=== PATIENT | female | born 1955 | race Caucasian/White ===

== ENCOUNTER 2018-08-13 13:46 | Inpatient (IN) | payer OTHER, MEDICAID ==
[~2018-08-13] VITALS: Ht 167.6 cm; Wt 68.4 kg
[2018-08-13] MEDS ORDERED: ONDANSETRON HCL 4 MG/2 ML VIAL IV ONE (14:45)
[2018-08-13] MEDS ORDERED: MORPHINE SULFATE 4 MG/ML SYR/VIAL IV ONE (14:45)
[2018-08-13] MEDS ORDERED: NITROGLYCERIN 0.4 MG SL TAB SL ONE (14:45)
[2018-08-13] MEDS ORDERED: ASPirin 81 mg TAB PO ONE (14:45)
[2018-08-13 14:50] LABS: Basophils # (auto) 0 uL; Basophils % (auto) 0.4 % (0.0-2.0); Eosinophils # (auto) 0.1 uL; Eosinophils % (auto) 1.7 % (0.0-7.0); Hematocrit 40.8 % (36.0-46.0); Hemoglobin 13.7 g/dL (12.2-16.2); Lymphocytes % (auto) 11.3 % (10.0-50.0); Mean Corpuscular Hemoglobin 30.9 pg (28.0-32.0); Mean Corpuscular Hgb Conc. 33.5 g/dL (32.0-36.0); Mean Corpuscular Volume 92.1 fL (80.0-100.0); Monocytes # (auto) 0.7 uL; Monocytes % (auto) 7.6 % (0.0-12.0); Neutrophils # (auto) 6.8 uL; Nucleated Red Blood Cells % 0.1 %; Platelet Count (auto) 211 10^3/uL (140-450); Red Blood Cells 4.43 10^6/uL (4.0-5.20); Red Cell Distribution Width 14.1 % (11.8-14.3); White Blood Cell 8.6 10^3/uL (4.4-10.8)
[2018-08-13 15:10] LABS: Albumin 3.4 g/dL (3.4-5.0); BUN/Creatinine Ratio 28.4; Bilirubin, Total 0.3 mg/dL (0.2-1.0); Calcium 8.8 mg/dL (8.5-10.1); Magnesium 2.3 mg/dL (1.6-2.6); Potassium 3.9 mmol/L (3.5-5.1); Total Protein 6.9 g/dL (6.4-8.2)
[2018-08-13] MEDS ORDERED: ENOXAPARIN SOD 60 MG/0.6 ML SYRINGE SC ONE (15:30)
[2018-08-13 16:12] LABS: Urine Bacteria FEW /hpf (None Seen); Urine Blood Negative /uL (Negative); Urine Hyaline Cast MOD /lpf (0 - 2); Urine Mucus FEW (None Seen); Urine Specific Gravity 1.029 (1.001-1.035); Urine WBC 11 /hpf (0 - 5)
[2018-08-13] MEDS ORDERED: ACETAMINOPHEN 500 MG TAB PO PRN (16:45)
[2018-08-13] MEDS ORDERED: traMADol HCL 50 MG TAB PO PRN (16:45)
[2018-08-13] MEDS ORDERED: LACTULOSE 20Gm/30ML SOLN PO PRN (16:45)
[2018-08-13] MEDS ORDERED: NITROGLYCERIN 0.4 MG SL TAB SL PRN (16:45)
[2018-08-13] MEDS ORDERED: LORazepam 0.5 MG TAB PO PRN (16:45)
[2018-08-13] MEDS ORDERED: MORPHINE SULF INJ 2 MG/ML SYRINGE 1ML IV PRN (16:45)
[2018-08-13] MEDS ORDERED: ALBUTEROL SULF 2.5 MG/0.5ML(0.5%) NEB SOLN NEB PRN (16:45)
[2018-08-13] MEDS ORDERED: TEMAZEPAM 15 MG CAP PO PRN (16:45)
[2018-08-13] MEDS ORDERED: DEXTROSE (50%) 50ML SYRG IV PRN (16:45)
[2018-08-13] MEDS ORDERED: PROMETHAZINE HCL 25 MG/ML 1ML IV PRN (16:45)
[2018-08-13] MEDS: SODIUM CHLORIDE 0.9% 1,000 ML IV SCH (16:48)
[2018-08-13] MEDS ORDERED: ONDANSETRON HCL 4 MG/2 ML VIAL ONE (17:34)
[2018-08-13] MEDS: ONDANSETRON HCL 4 MG/2 ML VIAL IV PRN (18:02)
[2018-08-13] MEDS: MORPHINE SULF INJ 2 MG/ML SYRINGE 1ML IV PRN (18:02)
[2018-08-13] MEDS: ACCU-CHEK COMFORT CURVE STRIP VI SCH (18:10)
[2018-08-13] MEDS: IPRATROPIUM BROM 0.5 MG/2.5ML INH SOL NEB SCH (19:20)
[2018-08-13] MEDS: ALBUTEROL SULF 2.5 MG/0.5ML(0.5%) NEB SOLN NEB SCH (19:20)
[2018-08-13 19:26] LABS: INR 1.01 (0.9-1.15); Partial Thromboplastin Time 26.1 sec (23.78-33.04); Prothrombin Time 10.8 sec (9.27-12.13)
[2018-08-13] MEDS ORDERED: IOHEXOL 350 MG/ML 100ML IJ ONE (19:42)
[2018-08-13] MEDS ORDERED: cefTRIAXone 1GM/10ml IVPUSH 10 ML IV ONE (19:45)
[2018-08-13] MEDS ORDERED: VANCOMYCIN 1GM/250ML 250 ML IV ONE (19:45)
[2018-08-13] MEDS ORDERED: VANCOMYCIN PER PHARMACY 0 MG IV SCH (19:45)
[2018-08-13] MEDS ORDERED: AZITHROMYCIN 500MG/ 250ML 250 ML IV ONE (19:45)
[2018-08-13] MEDS ORDERED: PIPERACILLIN-TAZOB 3.375GM 100 ML IV ONE (19:45)
[2018-08-13] MEDS: ATORVASTATIN 20 MG TAB PO SCH (22:00)
[2018-08-14] MEDS: ALBUTEROL SULF 2.5 MG/0.5ML(0.5%) NEB SOLN NEB SCH ×4 (00:50→18:35)
[2018-08-14] MEDS: IPRATROPIUM BROM 0.5 MG/2.5ML INH SOL NEB SCH ×4 (00:50→18:35)
[2018-08-14 01:25] VITALS: BP 104/65
[2018-08-14] MEDS: PIPERACILLIN-TAZOB 3.375GM 100 ML IV SCH ×2 (02:30→06:00)
[2018-08-14] MEDS: SODIUM CHLORIDE 0.9% 1,000 ML IV SCH ×2 (06:06→21:49)
[2018-08-14] MEDS: ACCU-CHEK COMFORT CURVE STRIP VI SCH ×3 (06:15→12:55)
[2018-08-14] MEDS ORDERED: HEPARIN SODIUM (PORCINE) 5000 UNITS/ML 1ML VIAL IV ONE ×2 (08:15→19:45)
[2018-08-14] MEDS ORDERED: ASPirin 81 mg TAB PO ONE (08:15)
[2018-08-14] MEDS: ONDANSETRON HCL 4 MG/2 ML VIAL IV PRN (09:00)
[2018-08-14] MEDS ORDERED: cefTRIAXone 1GM/10ml IVPUSH 10 ML IV SCH ×2 (09:00→12:15)
[2018-08-14 09:05] LABS: INR 1.03 (0.9-1.15); Partial Thromboplastin Time 28.2 sec (23.78-33.04)
[2018-08-14] MEDS ORDERED: LIDOCAINE 2% (LOCAL ANESTH.) PF 5ml SDV ONE (09:32)
[2018-08-14] MEDS ORDERED: IODIXANOL 320MG/ML 100ML BTL IV ONE (09:32)
[2018-08-14] MEDS ORDERED: ENOXAPARIN SOD 60 MG/0.6 ML SYRINGE SC SCH (10:00)
[2018-08-14] MEDS ORDERED: NITROGLYCERIN 0.2MG/HR TOPICAL PATCH TD SCH (10:00)
[2018-08-14] MEDS ORDERED: AZITHROMYCIN 500MG/ 250ML 250 ML IV SCH (10:00)
[2018-08-14] MEDS ORDERED: PANTOPRAZOLE 40 MG TAB PO SCH (10:00)
[2018-08-14] MEDS ORDERED: fentaNYL CITRATE 100 MCG/2 ML VL ONE (11:09)
[2018-08-14] MEDS ORDERED: ANGIOMAX 250 MG VIAL IV ONE (11:10)
[2018-08-14] MEDS ORDERED: MIDAZOLAM HCL 1MG/1ML-2 ML VIAL ONE (11:10)
[2018-08-14] MEDS ORDERED: SODIUM CHL 0.9% 50 ML ONE (11:10)
[2018-08-14] MEDS ORDERED: HEPARIN DRIP/D5W 100UNITS/ML 250 ML IV ONE (12:40)
[2018-08-14] MEDS ORDERED: cefTRIAXone 1GM/10ml IVPUSH 10 ML IV ONE (12:40)
[2018-08-14] MEDS ORDERED: HEPARIN DRIP/D5W 100UNITS/ML 250 ML IV SCH (12:45)
[2018-08-14] MEDS ORDERED: VANCOMYCIN 1GM/250ML 250 ML IV SCH (14:00)
[2018-08-14] MEDS: MORPHINE SULF INJ 2 MG/ML SYRINGE 1ML IV PRN ×2 (14:01→18:10)
[2018-08-14 15:27] LABS: Basophils # (auto) 0 uL; Basophils % (auto) 0.4 % (0.0-2.0); Eosinophils # (auto) 0.1 uL; Eosinophils % (auto) 1.6 % (0.0-7.0); Lymphocytes # (auto) 1.1 uL; Lymphocytes % (auto) 13.4 % (10.0-50.0); Mean Corpuscular Hemoglobin 30.4 pg (28.0-32.0); Mean Corpuscular Hgb Conc. 32.5 g/dL (32.0-36.0); Mean Corpuscular Volume 93.4 fL (80.0-100.0); Monocytes # (auto) 0.8 uL; Monocytes % (auto) 9.8 % (0.0-12.0); Neutrophils % (auto) 74.8 % (37.0-80.0); Platelet Count (auto) 199 10^3/uL (140-450); Red Blood Cells 4.61 10^6/uL (4.0-5.20); Red Cell Distribution Width 14.3 % (11.8-14.3)
[2018-08-14 19:01] VITALS: BP 117/75
[2018-08-14 19:14] LABS: INR 1.03 (0.9-1.15); Partial Thromboplastin Time 34.9 sec (23.78-33.04)
[2018-08-14] MEDS ORDERED: HEPARIN SODIUM (PORCINE) 5000 UNITS/ML 1ML VIAL ONE (19:46)
[2018-08-14 20:01] VITALS: BP 118/66
[2018-08-14 21:01] VITALS: BP 131/79
[2018-08-14] MEDS: ATORVASTATIN 20 MG TAB PO SCH (21:48)
[2018-08-14 22:01] VITALS: BP 139/77
[2018-08-14 23:01] VITALS: BP 100/61
[2018-08-15] VITALS (9 sets, daily range): BP systolic 100–120; BP diastolic 46–80
[2018-08-15] MEDS: ACCU-CHEK COMFORT CURVE STRIP VI SCH ×2 (00:30→06:00)
[2018-08-15] MEDS: MORPHINE SULF INJ 2 MG/ML SYRINGE 1ML IV PRN ×2 (00:42→07:03)
[2018-08-15 03:08] LABS: Basophils # (auto) 0 uL; Basophils % (auto) 0.4 % (0.0-2.0); Eosinophils # (auto) 0.2 uL; Eosinophils % (auto) 2.1 % (0.0-7.0); Hematocrit 38.6 % (36.0-46.0); Hemoglobin 12.7 g/dL (12.2-16.2); Lymphocytes # (auto) 1.4 uL; Lymphocytes % (auto) 15.1 % (10.0-50.0); Mean Corpuscular Hgb Conc. 32.7 g/dL (32.0-36.0); Mean Corpuscular Volume 91.6 fL (80.0-100.0); Monocytes # (auto) 1.1 uL; Monocytes % (auto) 11.9 % (0.0-12.0); Neutrophils # (auto) 6.5 uL; Neutrophils % (auto) 70.5 % (37.0-80.0); Platelet Count (auto) 201 10^3/uL (140-450); Red Blood Cells 4.22 10^6/uL (4.0-5.20); Red Cell Distribution Width 13.9 % (11.8-14.3); White Blood Cell 9.3 10^3/uL (4.4-10.8)
[2018-08-15 04:10] LABS: INR 1.05 (0.9-1.15); Prothrombin Time 11.2 sec (9.27-12.13)
[2018-08-15] MEDS: ALBUTEROL SULF 2.5 MG/0.5ML(0.5%) NEB SOLN NEB SCH ×2 (05:44)
[2018-08-15] MEDS: IPRATROPIUM BROM 0.5 MG/2.5ML INH SOL NEB SCH ×2 (05:44)
[2018-08-15] MEDS ORDERED: ASPirin 81 mg TAB PO SCH (10:00)
== END 2018-08-15 08:26 | disposition short-term general hospital (02) | DRG 281 ==
LOC: ER 13:46 → EDBD 13:46 → OVERFLOW 13:47 → ICU WEST 08-14 14:23
PROVIDERS: ADMIT Internal Medicine; ATTEND Internal Medicine
PROC: 4A023N7 Measurement of Cardiac Sampling and Pressure, Left Heart, Percutaneous Approach (ICD-10-PCS; principal; 2018-08-14)
PROC: B2111ZZ Fluoroscopy of Multiple Coronary Arteries using Low Osmolar Contrast (ICD-10-PCS; 2018-08-14)
PROC: B41F1ZZ Fluoroscopy of Right Lower Extremity Arteries using Low Osmolar Contrast (ICD-10-PCS; 2018-08-14)
DX: T82.855A Stenosis of coronary artery stent, initial encounter (principal); I21.4 Non-ST elevation (NSTEMI) myocardial infarction; J44.1 Chronic obstructive pulmonary disease with (acute) exacerbation; N39.0 Urinary tract infection, site not specified; F15.10 Other stimulant abuse, uncomplicated; F17.210 Nicotine dependence, cigarettes, uncomplicated; I25.10 Atherosclerotic heart disease of native coronary artery without angina pectoris; M54.9 Dorsalgia, unspecified; R73.9 Hyperglycemia, unspecified; Y83.8 Other surgical procedures as the cause of abnormal reaction of the patient, or of later complication, without mention of misadventure at the time of the procedure; L40.50 Arthropathic psoriasis, unspecified; Z90.710 Acquired absence of both cervix and uterus; Z91.14 Patient's other noncompliance with medication regimen; Z95.1 Presence of aortocoronary bypass graft; I25.2 Old myocardial infarction; Z95.5 Presence of coronary angioplasty implant and graft; Z79.899 Other long term (current) drug therapy; Y92.89 Other specified places as the place of occurrence of the external cause; Z82.49 Family history of ischemic heart disease and other diseases of the circulatory system
CPT/HCPCS: 36415; 71045; 71275; 75710; 80053; 80061; 80307; 81001; 82550; 82565; 82962; 83036; 83735; 83880; 84443; 84484; 85025; 85379; 85610; 85652; 85730; 86141; 86850; 86900; 86901; 87081; 93005; 93306; 93458; 94640; 96365; 96366; 96372; 96375; 99152; 99291; A6257; C1887; G0378; J0696; J2001; J2250; J2405; J2543; Q9967